=== PATIENT | female | born 1975 | race Caucasian/White ===

== ENCOUNTER → 2020-11-28 | Outpatient (CLI) | payer OTHER ==
[~2020-11-28] MED LIST: INDOCIN 50 MG C50 MG PO
== END ==
LOC: KOH-I 11:59
DX: R06.00 Dyspnea, unspecified (principal)
CPT/HCPCS: 71046

== ENCOUNTER → 2021-04-24 | Outpatient (CLI) | payer OTHER | LOC: ECHO 09:37 | DX: R60.0 Localized edema (principal); I08.1 Rheumatic disorders of both mitral and tricuspid valves | CPT/HCPCS: ECHO; 93306 ==

== ENCOUNTER → 2021-07-23 | Outpatient (CLI) | payer OTHER | LOC: HEART 5 07-02 09:15 | DX: R07.9 Chest pain, unspecified (principal); R53.83 Other fatigue | CPT/HCPCS: 78452; A9502; J2785 ==

== ENCOUNTER → 2022-03-26 | Outpatient (CLI) | payer BC, OTHER | LOC: KOH-I 08:00 | DX: R31.9 Hematuria, unspecified (principal) | CPT/HCPCS: 74176 ==

== ENCOUNTER → 2022-05-21 | Outpatient (CLI) | payer BC, OTHER ==
[2022-05-21 13:35] LABS: HEMOGLOBIN 13.8 gm/dl (12.3-15.3); RED BLOOD COUNT 4.33 M/UL (4.00-5.10); WHITE BLOOD COUNT 7.2 K/UL (4.5-11.0)
[2022-05-21 13:57] LABS: BUN/CREATININE RATIO 11 (0-10)
== END ==
LOC: CT 12:49
PROVIDERS: Physician Assistant
DX: R73.01 Impaired fasting glucose (principal); E55.9 Vitamin D deficiency, unspecified; E03.9 Hypothyroidism, unspecified; E78.2 Mixed hyperlipidemia; R10.9 Unspecified abdominal pain
CPT/HCPCS: 36415; 80053; 80061; 82607; 83036; 84439; 84443; 85025; Q9967

== ENCOUNTER → 2022-07-16 | Outpatient (CLI) | payer BC, OTHER ==
[2022-07-16 10:21] LABS: BUN/CREATININE RATIO 9 (0-10)
== END ==
LOC: LAB 09:18
PROVIDERS: Nurse Practitioner Family
DX: R73.01 Impaired fasting glucose (principal); D53.1 Other megaloblastic anemias, not elsewhere classified; E55.9 Vitamin D deficiency, unspecified; E03.9 Hypothyroidism, unspecified; E78.2 Mixed hyperlipidemia
CPT/HCPCS: 36415; 80053; 80061; 82607; 83036; 84439; 84443